=== PATIENT | female | born 1945 ===

== ENCOUNTER → 2017-03-10 19:26 | Outpatient (CLI) | payer MEDICARE, BC ==
[2017-03-15 14:13] LABS: EHRLICHIA CHAFF IGG Negative (Neg:<1:64); EHRLICHIA CHAFF IGM Negative (Neg:<1:20); HGE IGG TITER Negative (Neg:<1:64); HGE IGM TITER Negative (Neg:<1:20)
[2017-03-17 13:16] LABS: F. TULARENSIS - IGG Negative (()); F. TULARENSIS - IGM Negative (())
== END | disposition home or self-care (01) ==
LOC: D.LABREF 19:26
PROVIDERS: Student in an Organized Health Care Education/Training Program
DX: A77.0 Spotted fever due to Rickettsia rickettsii (principal); R53.83 Other fatigue